=== PATIENT | female | born 2000 | race Hispanic/Latino ===

== ENCOUNTER 2021-09-08 11:03 | Emergency (ER) | payer SELFPAY | END 2021-09-08 12:23 | disposition home or self-care (01) | LOC: NAV ERS 11:03 | DX: O20.0 Threatened abortion (principal); O99.331 Smoking (tobacco) complicating pregnancy, first trimester; Z87.891 Personal history of nicotine dependence; Z3A.01 Less than 8 weeks gestation of pregnancy | CPT/HCPCS: 36415; 84702; 86900; 86901; 99284 ==